=== PATIENT | female | born 1960 | race Caucasian/White ===

== ENCOUNTER 2018-02-15 18:19 | Emergency (ER) | payer OTHER ==
[~2018-02-15] VITALS: Ht 165.1 cm; Wt 96.9 kg
[~2018-02-15 18:19] MED LIST: AMLODIPINE BES2.5 MG PO; ASPIR-LOW81 MG PO; ATORVASTATIN CA10 MG PO; BACTRIM,SEPT1 TABLET PO; FIORICET,ESG1 TABLET PO; FLEXERIL10 MG PO; FLOMAX0.4 MG PO; MOTRIN800 MG PO; NEURONTIN100 MG PO; NITROSTAT0.4 MG SL; PERCOCET 5/31 TABLET PO; TYLENOL EXTRA500 MG PO; ZANTAC150 MG PO
[2018-02-15] MEDS ORDERED: NAPROSYN500 MG PO (20:27)
[2018-02-15] MEDS ORDERED: LORTAB 5-325 M1 EACH PO (20:27)
[2018-02-15] MEDS ORDERED: FLEXERIL10 MG PO (20:27)
[2018-02-15 20:44] VITALS: BP 132/83
== END 2018-02-15 20:45 | disposition home or self-care (01) ==
LOC: EME 18:19
DX: S16.1XXA Strain of muscle, fascia and tendon at neck level, initial encounter (principal); R51 Headache; V43.52XA Car driver injured in collision with other type car in traffic accident, initial encounter; Y92.411 Interstate highway as the place of occurrence of the external cause; F41.9 Anxiety disorder, unspecified; Z90.49 Acquired absence of other specified parts of digestive tract
CPT/HCPCS: 72040; 99281; 99284; J1885